=== PATIENT | female | born 1950 | race Caucasian/White ===

== ENCOUNTER → 2016-12-15 | Outpatient (CLI) | payer OTHER | LOC: BHFA 13:00 | PROVIDERS: ATTEND Internal Medicine | DX: R07.9 Chest pain, unspecified (principal); R06.02 Shortness of breath ==

== ENCOUNTER → 2017-01-25 | Outpatient (CLI) | payer OTHER | LOC: BMCIMAGING 15:35 | PROVIDERS: ATTEND Emergency Medicine | DX: S69.91XA Unspecified injury of right wrist, hand and finger(s), initial encounter (principal); M19.041 Primary osteoarthritis, right hand ==

== ENCOUNTER 2018-02-02 19:10 | Emergency (ER) | payer OTHER ==
--- NOTE | 2018-02-02 19:27 | EDPHY ---
H & P Stated Complaint: Splinter Through Toe Time Seen by Provider: 02/02/18 19:26 HPI/ROS: HPI: This is a 67-year-old female who presents with Chief Complaint: Splinter through toe Location: Left 2nd toe Quality: Splinter Duration: Prior to arrival Signs and Symptoms: No bleeding, no radiation, no numbness, no weakness, no tingling, no incontinence, no decreased range of motion, no swelling, + pain, no fever Timing: Acute Severity: [id number] Context: Patient reports that she was walking her mastiff dog at [facility] when she accidentally stubbed her toe while wearing sandals. She hit her left foot on a wooden stake. She reports that she felt immediate, constant, moderate, nonradiating pain. Reports pain worsened with bearing weight. After a few steps she looked down and noticed that there was a splinter in her left second toe. Reports tetanus current. Denies LOC/head injury/neck pain/dizziness /nausea/vomiting/amnesia. Modifying Factors: None Comment: ROS: see HPI Constitutional: No fever, no chills, no weight loss Eyes: No blurred vision Respiratory: No shortness of breath, no cough Cardiovascular: No chest pain Gastrointestinal: No nausea, no vomiting no diarrhea Genitourinary: No dysuria Extremities: No myalgias Neurologic: No weakness, no numbness Skin: No rashes Hematologic: No bruising, no bleeding MEDICAL/SURGICAL/SOCIAL HISTORY: Medical history: Rectal CA, Gallbladder, Pancreatitis, Tubal, Dog Bite, Mitral Valve Prolapse Surgical history: Denies Social history: Retired. CONSTITUTIONAL: extremely polite and cooperative adult white female who appears younger than stated age, wake and alert, no obvious distress HEENT: Atraumatic and normocephalic. NECK: supple, no midline tenderness, flexion 45 degrees, extension 45 degrees, right and left lateral flexion 45 degrees. No meningismus. Cardiovascular: Normal S1/S2, regular rate, regular rhythm, without murmur rub or gallop. PULMONARY/CHEST: Symmetrical and nontender. no crepitus. Clear to auscultation bilaterally. Good air movement. No accessory muscle usage. ABDOMEN: Soft, nondistended, nontender, no ecchymosis. PELVIC: no pain with rocking; bilateral hips flexion 125 degrees, extension 30 degrees, with no pain internal rotation and no pain external rotation. BACK: No midline tenderness, no paraspinous spasm, deep tendon reflexes 2/2, no pain with straight leg raise, No foot drop. Achilles reflexes are equal bilaterally. Able to walk on heels and toes without difficulty. EXTREMITIES: 2/2 pulses, strength 5/5, left 2nd digit splinter through and through sparing joint spaces. DIP/PIP/MCP flexion/extension intact with good light touch sensation. no deformities, no clubbing, no cyanosis or edema. NEUROLOGICAL: no focal neuro deficits. GCS 15. Light touch sensation intact. SKIN: Warm and dry, no erythema. no rash. Good capillary refill. Source: Patient Exam Limitations: No limitations - Personal History Current Tetanus Diphtheria and Acellular Pertussis (TDAP): Yes - Medical/Surgical History Hx Asthma: No Hx Chronic Respiratory Disease: Yes Hx Diabetes: No Hx Cardiac Disease: No Hx Renal Disease: No Hx Cirrhosis: No Hx Alcoholism: No Hx HIV/AIDS: No Hx Splenectomy or Spleen Trauma: No Other PMH: Rectal CA, Gallbladder, Pancreatitis, Tubal, Dog Bite, Mitral Valve Prolapse - Social History Smoking Status: Never smoked Constitutional: Initial Vital Signs Temperature (C) 36.8 C 02/02/18 19:12 Heart Rate 99 02/02/18 19:12 Respiratory Rate 18 02/02/18 19:12 Blood Pressure 116/88 H 02/02/18 19:12 O2 Sat (%) 100 02/02/18 19:12 O2 Delivery Mode Room Air Allergies/Adverse Reactions: erythromycin base Allergy (Verified 02/02/18 20:03) Home Medications: Medication Instructions Recorded Cephalexin [Keflex (*)] 500 mg PO TID #21 cap 02/02/18 Medical Decision Making Procedures: Procedure: Foreign body removal from left 2nd toe Anesthesia: 3 mL of 0.5% bupivacaine without epinephrine After verbal consent was obtained, the wood splinter was removed from left 2nd toe. The foreign body was removed manually with forceps under direct visualization. There were no complications. The procedure was performed by myself. ED Course/Re-evaluation: Digital block performed using 0.5% bupivacaine 4 mL with adequate anesthesia. Tetanus up-to-date splinter removed intact Irrigated copiously and wash with soap and water. Clean sterile dressing applied. Given Keflex for antibiotic prophylaxis. No signs of neurovascular compromise/tenting of skin/compartment syndrome/ extremities and joints examined above and below area of concern and are neurovascularly intact. This patient was seen under the supervision of my secondary supervising physician. I evaluated care for this patient independently. Differential Diagnosis: Differential diagnosis includes but is not limited to tendon injury, nerve injury, foreign body, cellulitis. - Data Points Medications Given: Discontinued Medications Cephalexin HCl (Keflex) 500 mg PO EDNOW ONE PRN Reason: Protocol Stop: 02/02/18 19:58 Last Admin: 02/02/18 20:04 Dose: 500 mg Departure - Departure Disposition: Home, Routine, Self-Care Clinical Impression: Splinter of toe of left foot Qualifiers: Encounter type: initial encounter Qualified Code(s): S90.455A - Superficial foreign body, left lesser toe(s), initial encounter Condition: Good Instructions: Soft Tissue Foreign Body (ED) Additional Instructions: Wash the site daily with mild soap and water; then pat dry; apply topical antibiotic ointment daily as needed until fully healed. Do not soak the area in a bath tub x 48 hours. Take Tylenol 650 mg every 4 hours and/or Ibuprofen 600 mg every 8 hours with food as needed for pain. Take Keflex 3 times a day x 7 days for antibiotic prophylaxis. Return to the ER immediately if you experience redness, red streaks, have fevers /chills, flu like symptoms, limited range of motion, or any other symptoms that concern you. Referrals: Samuel Alvarez [Primary Care Provider] - As per Instructions Prescriptions: Cephalexin [Keflex (*)] 500 mg PO TID #21 cap
[2018-02-02] MEDS ORDERED: CEPHALEXIN 500 MG CAP PO ONE (19:57)
[2018-02-02 20:32] VITALS: BP 114/71
== END 2018-02-02 20:31 | disposition home or self-care (01) ==
DX: S90.455A Superficial foreign body, left lesser toe(s), initial encounter (principal); Z85.048 Personal history of other malignant neoplasm of rectum, rectosigmoid junction, and anus; W45.8XXA Other foreign body or object entering through skin, initial encounter; Y99.8 Other external cause status; Y93.01 Activity, walking, marching and hiking